=== PATIENT | female | born 1950 ===

== ENCOUNTER 2016-09-08 15:55 | Inpatient (IN) | payer MEDICARE, OTHER ==
[2016-09-08 15:55] VITALS: BMI 30.1
[2016-09-08] MEDS ORDERED: Sodium Chloride 0.9% 1,000 ML IV STA ×2 (16:08→16:14)
[2016-09-08 17:10] LABS: BASO # 0.1 K/uL (0.0-0.2); BASO % 0.4 % (0.0-2.0); EOS # 0.2 K/uL (0.0-0.7); EOS % 1.2 % (0.0-4.0); HEMATOCRIT 42.9 % (34.0-47.0); LYMPH # 4.3 K/uL (1.0-4.3); LYMPH % 26.4 % (20.0-40.0); MEAN CELL VOLUME 87.2 fl (81.0-99.0); MEAN CORPUSCULAR HEMOGLOBIN 28.7 pg (27.0-31.0); MEAN PLATELET VOLUME 7.8 fl (7.2-11.7); MONO # 1.5 K/uL (0.0-0.8); MONO % 9.4 % (0.0-10.0); NEUT # 10.1 K/uL (1.8-7.0); NEUT % 62.6 % (50.0-75.0); RED CELL DISTRIBUTION WIDTH 13.2 % (11.5-14.5); WHITE BLOOD COUNT 16.1 K/uL (4.8-10.8)
--- NOTE | 2016-09-08 17:16 | ED PDOC ---
HPI: Abdomen Time Seen by Provider: 09/08/16 16:07 Chief Complaint (Nursing): Abdominal Pain Chief Complaint (Provider): abdominal pain nausea History Per: Patient, Other (Rx from SLAVA Bassett) Onset/Duration Of Symptoms: Days (3) Current Symptoms Are (Timing): Intermittent Episodes Context: Food Location Of Pain/Discomfort: RUQ Quality Of Discomfort: Sharp, Cramping, Burning Associated Symptoms: Nausea, Loss Of Appetite. denies: Vomiting, Diarrhea Exacerbating Factors: None Alleviating Factors: None Additional Complaint(s): 66yo female c/o RUQ abdominal pain, associated with nausea ongoing now for 3 days. Pain sharp radiating to back and "ribs". Denies prior history of similar pain. Denies urinary symptoms, fever, cough or syncope. Past Medical History Reviewed: Historical Data, Nursing Documentation Vital Signs: Last Vital Signs Temp 98.0 F 09/08/16 16:02 Pulse 85 09/08/16 16:02 Resp 16 09/08/16 16:02 BP 153/74 H 09/08/16 16:02 Pulse Ox 100 09/08/16 17:16 - Medical History PMH: Arthritis, Hypercholesterolemia, Hyperlipidemia Denies: HIV, HTN - Surgical History Surgical History: Denies: CABG - Family History Family History: States: Unknown Family Hx - Social History Current smoker - smoking cessation education provided: No Alcohol: None - Home Medications Home Medications: Ambulatory Orders Medication Instructions Recorded Calcium Carbonate [Oscal] 500 mg PO DAILY #0 tab 08/02/15 Aspirin [Ecotrin] 81 mg PO DAILY 02/12/16 Cholecalciferol (Vitamin D3) 5,000 unit PO DAILY 02/12/16 [Vitamin D3] Mv,Ca,Min/Iron/FA/Guarana/Caff 1 tab PO DAILY 02/12/16 [One-A-Day Women's Tablet] Rosuvastatin Calcium [Crestor] 10 mg PO Q48H 02/12/16 - Allergies Allergies/Adverse Reactions: Allergies Allergy/AdvReac Type Severity Reaction Status Date / Time gemifloxacin mesylate Allergy RASH Verified 07/31/15 22:33 [From Factive] Review of Systems Constitutional: Negative for: Fever, Chills Cardiovascular: Negative for: Chest Pain Respiratory: Negative for: Cough, Shortness of Breath Gastrointestinal: Positive for: Nausea, Abdominal Pain. Negative for: Vomiting , Diarrhea Genitourinary Female: Negative for: Dysuria, Frequency Musculoskeletal: Positive for: Back Pain. Negative for: Neck Pain, Arm Pain, Leg Pain Skin: Negative for: Rash, Lesions, Jaundice Neurological: Negative for: Weakness, Numbness Psych: Negative for: Anxiety Physical Exam - Reviewed Nursing Documentation Reviewed: Yes Vital Signs Reviewed: Yes - Physical Exam Appears: Positive for: Well, Non-toxic, No Acute Distress Head Exam: Positive for: ATRAUMATIC, NORMAL INSPECTION, NORMOCEPHALIC Skin: Positive for: Normal Color, Warm, DRY Eye Exam: Positive for: EOMI, Normal appearance, PERRL ENT: Positive for: Normal ENT Inspection Neck: Positive for: Normal, Painless ROM Cardiovascular/Chest: Positive for: Regular Rate, Rhythm Respiratory: Positive for: CNT, Normal Breath Sounds Gastrointestinal/Abdominal: Positive for: Bowel Sounds, Soft, Tenderness (+RUQ) . Negative for: Guarding, Rebound Back: Positive for: Normal Inspection Extremity: Positive for: Normal ROM Neurologic/Psych: Positive for: Alert, Oriented - Laboratory Results Result Diagrams: 09/08/16 16:15 09/08/16 16:45 - ECG O2 Sat by Pulse Oximetry: 100 Pulse Ox Interpretation: Normal Medical Decision Making Medical Decision Making: Workup initiated for RUQ pain r/o cholecystitis vs cholelithiasis vs liver abnormality vs other. Pain medication initiated. labs reviewed Mild elev WBC and AST US prelim report RUQ +multiple hypoechoeic lesions, GB contracted. CT abd pelv thus ordered. Pt updated on findings. Disposition - Clinical Impression Clinical Impression: Abdominal pain - Patient ED Disposition Is Patient to be Admitted: Transfer of Care Counseled Patient/Family Regarding: Studies Performed - Disposition Disposition: Transfer of Care Disposition Time: 19:08 Condition: STABLE Patient Signed Over To: Fermin Hilton Handoff Comments: pending CT abd pelv diagnosis and dispo
[2016-09-08 17:21] LABS: ALB/GLOB RATIO 1.1 (1.0-2.1); ALKALINE PHOSPHATASE 110 U/L (38-126); ALT/SGPT 36 U/L (9-52); AST/SGOT 53 U/L (14-36); BILIRUBIN,TOTAL 0.3 mg/dl (0.2-1.3); BLOOD UREA NITROGEN 16 mg/dl (7-17); CALCIUM 9.9 mg/dL (8.4-10.2); CARBON DIOXIDE 25 mmol/L (22-30); CHLORIDE 102 mmol/L (98-107); GFR AFRICAN-AMERICAN > 60; GLUCOSE,RANDOM 94 mg/dL (65-105); LIPASE 78 U/L (23-300); POTASSIUM 3.9 MMOL/L (3.6-5.0); SODIUM 142 mmol/l (132-148); TOTAL PROTEIN 8.1 G/DL (6.3-8.2)
[2016-09-08] MEDS ORDERED: Iohexol 240 (50 ml) PO ONE (18:07)
[2016-09-08] MEDS ORDERED: Iohexol 240 (50 ml) ONE (18:33)
[2016-09-08 20:16] LABS: RBC URINE 2 /hpf (0-3); URINE BILIRUBIN NEGATIVE (NEGATIVE); URINE BLOOD NEGATIVE (NEGATIVE); URINE COLOR YELLOW (YELLOW); URINE GLUCOSE (UA) NEG (Normal); URINE KETONE NEGATIVE (NEGATIVE); URINE LEUKOCYTE ESTERASE NEG Leu/uL (Negative); URINE PROTEIN NEGATIVE (NEGATIVE); URINE UROBILINOGEN 0.2-1.0 mg/dL (0.2-1.0); WBC URINE < 1 /hpf (0-5)
[2016-09-08] MEDS ORDERED: Iohexol 300 100 ML IJ ONE (20:39)
[2016-09-08] MEDS ORDERED: Sodium Chloride 0.9% 50 ML IV ONE (20:39)
--- NOTE | 2016-09-08 22:19 | CT ---
EXAM: CT Abdomen and Pelvis With Intravenous Contrast CLINICAL HISTORY: 66 years old, female; Pain; Abdominal pain; Localized; Right upper quadrant (ruq); Additional info: Ruq abdominal pain abnormal us. Sent physician doc. With request TECHNIQUE: Axial computed tomography images of the abdomen and pelvis with intravenous contrast. This CT exam was performed using one or more of the following dose reduction techniques: automated exposure control, adjustment of the mA and/or kV according to patient size, and/or use of iterative reconstruction technique. Coronal and sagittal reformatted images were created and reviewed. CONTRAST: 100 mL of [id number] administered intravenously. EXAM DATE/TIME: 09/08/2016 6:07 PM COMPARISON: Prior CT abdomen and pelvis of 09/11/2015. FINDINGS: LOWER THORAX: No infiltrate seen in the lung bases. ABDOMEN: LIVER: Since the prior study, there has been development of multiple indeterminate liver lesions, which do not appear to represent cysts. The largest lesion is a large, irregularly-shaped, infiltrative appearing lesion centered in the anterior segment of the right lobe, but also extending into the medial segment of the left lobe. This lesion measures at least 9.4 x 8.0 cm in size. It has an irregular shape, with lobulated margins. It is mostly hypodense, and demonstrates peripheral enhancement. The remaining lesions are smaller in size and round in shape. They are also hypodense, with peripheral enhancement. At least 3 additional lesions are seen. No associated air. GALLBLADDER AND BILE DUCTS: No CT evidence of acute cholecystitis. No evidence of significant biliary ductal dilatation. PANCREAS: No CT evidence of acute pancreatitis. SPLEEN: No acute abnormality of the spleen identified. ADRENALS: No acute abnormality of the adrenal glands identified. KIDNEYS AND URETERS: No acute abnormality of the kidneys identified. No evidence of significant hydrouereteronephrosis. STOMACH AND BOWEL: No acute abnormality of the stomach or duodenum identified. No evidence of small bowel obstruction. No acute abnormality of the colon identified. APPENDIX: Appendix is seen, and is within normal limits in appearance. PELVIS: BLADDER: No acute abnormality of the bladder identified. REPRODUCTIVE:No acute abnormality of the reproductive organs is seen. No acute abnormality of the uterus identified. No evidence of large adnexal masses. ABDOMEN and PELVIS: INTRAPERITONEAL SPACE: No evidence of free intraperitoneal air or fluid. BONES/JOINTS: Bony structures appear demineralized. No findings to suggest diffuse bony metastatic disease. SOFT TISSUES: Bilateral fat-containing inguinal hernias. VASCULATURE: No evidence of abdominal aortic aneurysm. No evidence of periaortic hemorrhage. LYMPH NODES: Mildly enlarged portacaval lymph node is seen, measuring 3.6 x 1.5 cm, and cannot rule out a metastatic lymph node. No evidence of diffuse pathologic lymphadenopathy. IMPRESSION: - Multiple indeterminate, peripherally-enhancing liver lesions, a new finding compared to a 09/11/2015 CT. The dominant lesion is a large (9.4 cm) infiltrative lesion centered in the right lobe. In a patient of this age, neoplasm is suspected, such as liver metastases. Inflammatory lesions, such as liver abscesses are difficult to rule out given the appearance. Findings require clinical correlation. There is no additional evidence of an inflammatory process in the abdomen or pelvis. - See above for remaining findings.
[2016-09-08] MEDS ORDERED: Piperacillin/Tazobact 3.375 GM in Sodium Chloride 0.9% 100 ML IVPB STA (22:41)
--- NOTE | 2016-09-08 22:42 | ED PDOC ---
- Laboratory Results Result Diagrams: 09/08/16 16:15 09/08/16 16:45 - ECG O2 Sat by Pulse Oximetry: 100 Medical Decision Making Medical Decision Makin:08 Patient transferred over to pr by Dr. Tono Hansen III pending CT A/P diagnosis and disposition. 1030PM: U/S and CT concerning for possible abscess or neoplasm. Spoke with Dr. Bassett who recommends admission for workup. Findings d/w patient. Admitted to hospitalist service with Dr. Stanley. Disposition - Clinical Impression Clinical Impression: Abdominal pain, Liver mass - POA Present On Arrival: None - Disposition Disposition: Hospitalized as Observation Patient Disposition Time: 22:30 Condition: STABLE
[2016-09-08] MEDS ORDERED: Piperacillin/Tazobact 3.375 gm Inj IVPB ONE (22:49)
[2016-09-08] MEDS ORDERED: Sodium Chloride 0.9% 1,000 ML IV SCH (23:15)
--- NOTE | 2016-09-08 23:22 | CP.PCM.HP ---
History of Present Illness - History of Present Illness History of Present Illness: CC: abd pain HPI: This is a 66 y/o female with HLD and DM2 who presents with RUQ pain which has been going on for 'some time' but worsened over the past weekend. States she has had n but no v/d. Denies f/c. States she has had malaise and decreased appetite, but only for past few days. Denies weight loss. Denies travel to foreign countries or unusual ingestions. ROS: 14 systems reviewed, negative other than HPI MHx: HLD, DM2, ?osteoarthritis SHx: R shoulder Allergies: Gemifloxacin Medications: As per med rec (pending) Family Hx: DM runs in [place], breast cancer in sister Social Hx: Lives alone, no tobacco, no EtOH Surrogate: Daughters Meliza and Kanchan Present on Admission - Present on Admission Any Indicators Present on Admission: No Past Patient History - Infectious Disease Hx of Infectious Diseases: None - Past Medical History & Family History Past Medical History?: Yes - Past Social History Alcohol: None - CARDIAC Hx Hypercholesterolemia: Yes Hx Hypertension: No - ENDOCRINE/METABOLIC Hx Endocrine Disorders: Yes Hx Diabetes Mellitus Type 2: Yes - HEMATOLOGICAL/ONCOLOGICAL Hx Human Immunodeficiency Virus (HIV): No - MUSCULOSKELETAL/RHEUMATOLOGICAL Hx Arthritis: Yes - PSYCHIATRIC Hx Substance Use: No - SURGICAL HISTORY Hx Coronary Artery Bypass Graft: No - ANESTHESIA Hx Anesthesia: Yes Hx Anesthesia Reactions: No Hx Malignant Hyperthermia: No Meds Allergies/Adverse Reactions: Allergies Allergy/AdvReac Type Severity Reaction Status Date / Time gemifloxacin mesylate Allergy RASH Verified 07/31/15 22:33 [From Factive] Physical Exam - Constitutional Appears: No Acute Distress - Head Exam Head Exam: ATRAUMATIC, NORMOCEPHALIC - Eye Exam Eye Exam: EOMI, PERRL - ENT Exam ENT Exam: Mucous Membranes Moist - Neck Exam Neck exam: Positive for: Full Rom - Respiratory Exam Respiratory Exam: Clear to Auscultation Bilateral, NORMAL BREATHING PATTERN - Cardiovascular Exam Cardiovascular Exam: REGULAR RHYTHM, +S1, +S2 - GI/Abdominal Exam GI & Abdominal Exam: Normal Bowel Sounds, Soft, Tenderness Additional comments: TTP RUQ more to the side of the ribs - Extremities Exam Extremities exam: Positive for: full ROM, normal inspection - Back Exam Back exam: NORMAL INSPECTION - Neurological Exam Neurological exam: Alert, CN II-XII Intact, Oriented x3 - Psychiatric Exam Psychiatric exam: Normal Affect, Normal Mood - Skin Skin Exam: Dry, Warm Results - Vital Signs Recent Vital Signs: Last Vital Signs Temp 98.0 F 09/08/16 16:02 Pulse 85 09/08/16 16:02 Resp 16 09/08/16 16:02 BP 153/74 H 09/08/16 16:02 Pulse Ox 100 09/08/16 22:58 - Labs Result Diagrams: 09/08/16 16:15 09/08/16 16:45 Labs: Laboratory Results - last 24 hr 09/08/16 20:01 Urine Color Yellow Urine Clarity Clear Urine pH 6.0 Ur Specific [place] 1.009 Urine Protein Negative Urine Glucose (UA) Neg Urine Ketones Negative Urine Blood Negative Urine Nitrate Negative Urine Bilirubin Negative Urine Urobilinogen 0.2-1.0 Ur Leukocyte Esterase Neg Urine RBC (Auto) 2 Urine Microscopic WBC < 1 Assessment & Plan (1) Liver mass Assessment and Plan: 66 y/o female with HLD and DM2 presenting with liver mass of unclear etiology. 1) Liver mass -- infectious vs. malignancy; elevated WC -Cont Zosyn IV for now, will cover g- and anaerobes -NPO with IVF for now, plan for possible IR guided Bx in AM 2) DM2 -- Hold metformin given IV contrast; accucheck q6h and SSI 3) DVT PPx -- SCDs only Status: Acute (2) DVT prophylaxis Status: Acute (3) Hyperlipidemia Status: Chronic (4) DM2 (diabetes mellitus, type 2) Status: Acute
[2016-09-09] MEDS: Piperacillin/Tazobact 3.375 GM in Sodium Chloride 0.9% 100 ML IVPB SCH ×4 (04:01→21:10)
[2016-09-09] MEDS: Insulin Regular 100 units/ml SC SCH ×4 (07:27→22:02)
[2016-09-09 07:44] LABS: BASO # 0.1 K/uL (0.0-0.2); BASO % 0.5 % (0.0-2.0); EOS # 0.4 K/uL (0.0-0.7); HEMATOCRIT 39.1 % (34.0-47.0); LYMPH # 3.3 K/uL (1.0-4.3); LYMPH % 27.5 % (20.0-40.0); MEAN CELL VOLUME 86.5 fl (81.0-99.0); MEAN CORPUSCULAR HEMOGLOBIN 29.2 pg (27.0-31.0); MEAN CORPUSCULAR HGB CONC 33.8 g/dL (33.0-37.0); MEAN PLATELET VOLUME 7.9 fl (7.2-11.7); MONO # 1.1 K/uL (0.0-0.8); MONO % 9.1 % (0.0-10.0); NEUT # 7.3 K/uL (1.8-7.0); NEUT % 59.9 % (50.0-75.0); NRBC % 0.1 % (0.0-0.0); RED CELL DISTRIBUTION WIDTH 13.2 % (11.5-14.5); WHITE BLOOD COUNT 12.1 K/uL (4.8-10.8)
[2016-09-09 07:51] LABS: ALKALINE PHOSPHATASE 96 U/L (38-126); ALT/SGPT 26 U/L (9-52); AST/SGOT 40 U/L (14-36); BILIRUBIN,TOTAL 0.5 mg/dl (0.2-1.3); BLOOD UREA NITROGEN 17 mg/dl (7-17); CALCIUM 9.1 mg/dL (8.4-10.2); CARBON DIOXIDE 24 mmol/L (22-30); CHLORIDE 106 mmol/L (98-107); GFR AFRICAN-AMERICAN > 60; GLUCOSE,RANDOM 105 mg/dL (65-105); POTASSIUM 4.1 MMOL/L (3.6-5.0); SODIUM 143 mmol/l (132-148); TOTAL PROTEIN 6.7 G/DL (6.3-8.2)
[2016-09-09 07:54] LABS: PARTIAL THROMBOPLASTIN TIME 25.2 SECONDS (23.3-32.5)
[2016-09-09] MEDS ORDERED: Lidocaine 1% Inj (20ml) ONE (10:51)
[2016-09-09] MEDS ORDERED: Absorbable Gelatin Sponge Size 12-7 ONE (10:52)
[2016-09-09] MEDS ORDERED: Midazolam 2 MG/2 ML VIAL ONE (10:56)
--- NOTE | 2016-09-09 11:16 | PCM.SURG1 ---
Surgeon's Initial Post Op Note - Surgeon's Notes Surgeon: Placido Spann MD Dipper Machine Operator: NONE Type of Anesthesia: IV Sedation Pre-Operative Diagnosis: Liver mass Operative Findings: US showed a heterogenous mass right liver. Post-Operative Diagnosis: Liver mass Operation Performed: US guided core biopsy of right liver mass. Specimen/Specimens Removed: 18 g core x 3 Estimated Blood Loss: EBL {In ML}: 2 Blood Products Given: N/A Drains Used: No Drains Post-Op Condition: Fair Date of Surgery/Procedure: 09/09/16 Time of Surgery/Procedure: 11:10
--- NOTE | 2016-09-09 11:58 | US ---
HISTORY: RUQ pain attention liver, GB, aorta, pancreas COMPARISON: 08/10/2015. Hepatic ultrasound. 09/11/2015 CT abdomen and pelvis September 08, 2016. CT abdomen and pelvis. Summary of findings on the comparison examination: Multiple indeterminate peripherally enhancing liver lesions a new finding compared to prior CT scan 09/11/2015. Dominant lesion 9.4 cm right hepatic lobe TECHNIQUE: Sonographic evaluation of the abdomen. FINDINGS: LIVER: Measures 17 cm. Hepatopedal blood flow. Fatty infiltration manifest ultrasonographically as increased echogenicity of the liver parenchyma. Confirmation of hepatic masses better delineated on recent CT scan. This includes the right hepatic mass 10.5 x 9.2 cm. Smaller mass in the left hepatic lobe measures 1.1 cm. An additional mass in the right hepatic lobe "Area of pain" identified 2.1 x 2.5 cm. GALLBLADDER: Unremarkable. No gallstones. COMMON BILE DUCT: Measures 2.7 mm. No stones. No dilatation. PANCREAS: Unremarkable as visualized. No mass. No ductal dilatation. RIGHT KIDNEY: Measures 5.3 x 11.2cm. Normal echogenicity. No calculus, mass, or hydronephrosis. AORTA: No aneurysmal dilatation. IVC: Unremarkable. OTHER FINDINGS: None. IMPRESSION: Enlarged liver, multiple hepatic masses better delineated on recent CT scan. Otherwise no acute/ significant findings.
[2016-09-09] MEDS: Lactated Ringer's 1,000 ML IV SCH ×2 (13:00→22:56)
--- NOTE | 2016-09-09 14:21 | CP.PCM.PN ---
Subjective - Date & Time of Evaluation Date of Evaluation: 09/09/16 Time of Evaluation: 14:00 - Subjective Subjective: no fever still with abdominal pain pt seen post Liver biopsy no N/V no diaarhea nor constipation no CP no SOB Had Colonoscopy 3 yrs ago- normal yearly Mammo negative Objective - Vital Signs/Intake and Output Vital Signs (last 24 hours): Temp Pulse Resp BP Pulse Ox 98.5 F 66 18 124/71 95 09/09/16 13:00 09/09/16 13:00 09/09/16 13:00 09/09/16 13:00 09/09/16 13:00 Intake and Output: 09/09/16 09/09/16 06:59 18:59 Intake Total 200 Balance 200 - Medications Medications: Current Medications Acetaminophen (Tylenol 325mg Tab) 650 mg PO Q6 PRN PRN Reason: Pain, Mild (1-3) Acetaminophen (Tylenol 325mg Tab) 650 mg PO Q6 PRN PRN Reason: Fever >100.4 F Atorvastatin Calcium (Lipitor) 20 mg PO DAILY [facility] Last Admin: 09/09/16 09:27 Dose: Not Given Piperacillin Sod/Tazobactam (Sod 3.375 gm/ Sodium Chloride) 100 mls @ 100 mls/ hr IVPB Q6 [facility] Last Admin: 09/09/16 09:28 Dose: 100 mls/hr Lactated Ringer's (Lactated Ringer's) 1,000 mls @ 100 mls/hr IV .Q10H [facility] Last Admin: 09/09/16 13:00 Dose: 200 mls Metronidazole (Flagyl 500mg/100ml Ns) 100 mls @ 100 mls/hr IVPB Q8 [facility] Insulin Human Regular (Humulin R) 0 units SC ACHS [facility] PRN Reason: Protocol Last Admin: 09/09/16 13:27 Dose: Not Given Ondansetron HCl (Zofran Inj) 4 mg IVP Q6 PRN PRN Reason: Nausea/Vomiting Oxycodone/Acetaminophen (Percocet 5/325 Mg Tab) 1 tab PO Q4 PRN PRN Reason: Pain, moderate (4-7) Stop: 09/11/16 23:16 - Labs Labs: PT 10.7 SECONDS (9.6-11.2) 09/09/16 05:40 INR 1.03 (0.92-1.08) 09/09/16 05:40 APTT 25.2 SECONDS (23.3-32.5) 09/09/16 05:40 - Constitutional Appears: No Acute Distress - Head Exam Head Exam: NORMAL INSPECTION, NORMOCEPHALIC - Eye Exam Eye Exam: EOMI, Normal appearance, PERRL Pupil Exam: NORMAL ACCOMODATION - ENT Exam ENT Exam: Mucous Membranes Dry, Normal External Ear Exam - Neck Exam Neck Exam: Full ROM. absent: Meningismus - Respiratory Exam Respiratory Exam: NORMAL BREATHING PATTERN. absent: Respiratory Distress - Cardiovascular Exam Cardiovascular Exam: REGULAR RHYTHM, +S1, +S2 - GI/Abdominal Exam GI & Abdominal Exam: Soft, Tenderness (epigastric and RUQ), Normal Bowel Sounds - Extremities Exam Extremities Exam: Full ROM. absent: Calf Tenderness, Normal Capillary Refill, Pedal Edema - Back Exam Back Exam: Full ROM. absent: CVA tenderness (L), CVA tenderness (R), paraspinal tenderness, vertebral tenderness - Neurological Exam Neurological Exam: Alert, Awake, CN II-XII Intact, Oriented x3 Neuro motor strength exam: Left Upper Extremity: 5, Right Upper Extremity: 5, Left Lower Extremity: 5, Right Lower Extremity: 5 - Psychiatric Exam Psychiatric exam: Normal Affect, Normal Mood - Skin Skin Exam: Dry, Normal Color, Warm Assessment and Plan (1) Abdominal pain Status: Acute (2) Liver mass Status: Acute (3) DM2 (diabetes mellitus, type 2) Status: Chronic (4) Hyperlipidemia Status: Chronic (5) DVT prophylaxis Status: Acute - Assessment and Plan (Free Text) Assessment: 66 y/o lady with hx of DM, Hyperlipidemia came bec of abd pain. CT of abdomen : multiple liver lesions, largest 9.4 cm. (1) Abdominal pain Status: Acute Pain mgt with IV Morphine Pt is NPO , will slowly upgrade diet - start Clear liquid diet empirically started on IV Zosyn (2) Liver masses, ? metastatic Status: Acute CT of abd : multiple liver lesions IR consulted for US guided liver biopsy = await pathology Oncology consult : Dr Madrid AFP: normal need further work up for malignancy Colonoscopy - 2-3 yrs ago was normal accdg to pt Pt had Breast biopsy done 2 yrs ago : normal (3) DM2 (diabetes mellitus, type 2) controlled Status: Chronic accucheck with coverage (4) Hyperlipidemia Status: Chronic cont Lipitor (5) DVT prophylaxis Status: Acute SCD for now- pt just had biopsy
[2016-09-09 16:13] VITALS: RESP 20
[2016-09-09] MEDS: metroNIDAZOLE 500mg/100ml NS 100 ML IVPB SCH (17:34)
[2016-09-09] MEDS: Oxycodone/Acetaminophen 5/325 mg Tab PO PRN ×2 (18:43→23:45)
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
[2016-09-10] MEDS: metroNIDAZOLE 500mg/100ml NS 100 ML IVPB SCH ×2 (00:08→09:12)
[2016-09-10] MEDS: Piperacillin/Tazobact 3.375 GM in Sodium Chloride 0.9% 100 ML IVPB SCH ×2 (04:34→10:41)
[2016-09-10] MEDS: Insulin Regular 100 units/ml SC SCH ×2 (06:50→12:36)
[2016-09-10 08:01] VITALS: BP 147/74; PULSE 67; TEMP 98.6; O2SAT 94
[2016-09-10 08:09] LABS: CARCINOEMBRYONIC ANTIGEN 1.2 ng/mL (0-3.0)
[2016-09-10] MEDS: Lactated Ringer's 1,000 ML IV SCH (09:12)
[2016-09-10 09:29] LABS: HEMATOCRIT 40.7 % (34.0-47.0); MEAN CELL VOLUME 86.9 fl (81.0-99.0); MEAN CORPUSCULAR HEMOGLOBIN 28.8 pg (27.0-31.0); MEAN CORPUSCULAR HGB CONC 33.2 g/dL (33.0-37.0); RED CELL DISTRIBUTION WIDTH 13.1 % (11.5-14.5); WHITE BLOOD COUNT 15.5 K/uL (4.8-10.8)
[2016-09-10 09:38] LABS: ALKALINE PHOSPHATASE 96 U/L (38-126); ALT/SGPT 27 U/L (9-52); AST/SGOT 49 U/L (14-36); BILIRUBIN,TOTAL 0.6 mg/dl (0.2-1.3); BLOOD UREA NITROGEN 12 mg/dl (7-17); CALCIUM 9.2 mg/dL (8.4-10.2); CARBON DIOXIDE 22 mmol/L (22-30); CHLORIDE 105 mmol/L (98-107); GFR AFRICAN-AMERICAN > 60; GLUCOSE,RANDOM 110 mg/dL (65-105); SODIUM 144 mmol/l (132-148); TOTAL PROTEIN 7.2 G/DL (6.3-8.2)
[2016-09-10] MEDS: Oxycodone/Acetaminophen 5/325 mg Tab PO PRN (10:00)
--- NOTE | 2016-09-10 14:21 | CP.PCM.DIS ---
Provider - Provider Date of Admission: 09/09/16 12:17 Attending physician: Navya Stanley MD Primary care physician: Dr Bassett Consults: IR for liver biopsy Dr Madrid - Oncology Time Spent in preparation of Discharge (in minutes): 35 Diagnosis - Discharge Diagnosis (1) Abdominal pain Status: Acute (2) Liver mass Status: Acute (3) DM2 (diabetes mellitus, type 2) Status: Chronic (4) Hyperlipidemia Status: Chronic (5) DVT prophylaxis Status: Acute Hospital Course - Lab Results Lab Results: Most Recent Lab Values WBC 15.5 K/uL (4.8-10.8) H 09/10/16 09:27 RBC 4.69 Mil/uL (3.80-5.20) 09/10/16 09:27 Hgb 13.5 g/dL (12.0-16.0) 09/10/16 09:27 Hct 40.7 % (34.0-47.0) 09/10/16 09:27 MCV 86.9 fl (81.0-99.0) 09/10/16 09:27 MCH 28.8 pg (27.0-31.0) 09/10/16 09:27 MCHC 33.2 g/dL (33.0-37.0) 09/10/16 09:27 RDW 13.1 % (11.5-14.5) 09/10/16 09:27 Plt Count 313 K/uL (130-400) 09/10/16 09:27 MPV 7.9 fl (7.2-11.7) 09/09/16 05:40 Neut % (Auto) 59.9 % (50.0-75.0) 09/09/16 05:40 Lymph % (Auto) 27.5 % (20.0-40.0) 09/09/16 05:40 Mcdonald % (Auto) 9.1 % (0.0-10.0) 09/09/16 05:40 Eos % (Auto) 3.0 % (0.0-4.0) 09/09/16 05:40 Baso % (Auto) 0.5 % (0.0-2.0) 09/09/16 05:40 Neut # 7.3 K/uL (1.8-7.0) H 09/09/16 05:40 Lymph # 3.3 K/uL (1.0-4.3) 09/09/16 05:40 Mcdonald # 1.1 K/uL (0.0-0.8) H 09/09/16 05:40 Eos # 0.4 K/uL (0.0-0.7) 09/09/16 05:40 Baso # 0.1 K/uL (0.0-0.2) 09/09/16 05:40 PT 10.7 SECONDS (9.6-11.2) 09/09/16 05:40 INR 1.03 (0.92-1.08) 09/09/16 05:40 APTT 25.2 SECONDS (23.3-32.5) 09/09/16 05:40 Sodium 144 mmol/l (132-148) 09/10/16 09:27 Potassium 4.0 MMOL/L (3.6-5.0) 09/10/16 09:27 Chloride 105 mmol/L (98-107) 09/10/16 09:27 Carbon Dioxide 22 mmol/L (22-30) 09/10/16 09:27 Anion Gap 21 (10-20) H 09/10/16 09:27 BUN 12 mg/dl (7-17) 09/10/16 09:27 Creatinine 0.6 mg/dL (0.7-1.2) L 09/10/16 09:27 Est GFR ( Amer) > 60 09/10/16 09:27 Est GFR (Non-Af Amer) > 60 09/10/16 09:27 POC Glucose (mg/dL) 248 mg/dL (65-110) H 09/10/16 10:47 Random Glucose 110 mg/dL (65-105) H 09/10/16 09:27 Calcium 9.2 mg/dL (8.4-10.2) 09/10/16 09:27 Total Bilirubin 0.6 mg/dl (0.2-1.3) 09/10/16 09:27 AST 49 U/L (14-36) H D 09/10/16 09:27 ALT 27 U/L (9-52) 09/10/16 09:27 Alkaline Phosphatase 96 U/L (38-126) 09/10/16 09:27 Total Protein 7.2 G/DL (6.3-8.2) 09/10/16 09:27 Albumin 3.6 g/dL (3.5-5.0) 09/10/16 09:27 Globulin 3.6 gm/dL (2.2-3.9) 09/10/16 09:27 Albumin/Globulin Ratio 1.0 (1.0-2.1) 09/10/16 09:27 Lipase 78 U/L (23-300) 09/08/16 16:45 Alpha Fetoprotein 7.4 IU/mL (0.0-7.22) H 09/10/16 05:35 Carcinoembryonic Ag 1.2 ng/mL (0-3.0) 09/10/16 05:35 Urine Color Yellow (YELLOW) 09/08/16 20:01 Urine Clarity Clear (Clear) 09/08/16 20:01 Urine pH 6.0 (5.0-8.0) 09/08/16 20:01 Ur Specific [place] 1.009 (1.003-1.030) 09/08/16 20:01 Urine Protein Negative mg/dL (NEGATIVE) 09/08/16 20:01 Urine Glucose (UA) Neg mg/dL (Normal) 09/08/16 20:01 Urine Ketones Negative mg/dL (NEGATIVE) 09/08/16 20:01 Urine Blood Negative (NEGATIVE) 09/08/16 20:01 Urine Nitrate Negative (NEGATIVE) 09/08/16 20:01 Urine Bilirubin Negative (NEGATIVE) 09/08/16 20:01 Urine Urobilinogen 0.2-1.0 mg/dL (0.2-1.0) 09/08/16 20:01 Ur Leukocyte Esterase Neg [place]/uL (Negative) 09/08/16 20:01 Urine RBC (Auto) 2 /hpf (0-3) 09/08/16 20:01 Urine Microscopic WBC < 1 /hpf (0-5) 09/08/16 20:01 - Hospital Course Hospital Course: 66 y/o lady with hx of DM, Hyperlipidemia came bec of abd pain. CT of abdomen : multiple liver lesions, largest 9.4 cm. Liver Biopsy done by IR. Pt will ff up pathology result with dr Madrid. (1) Abdominal pain Status: Acute Pt came with abd pain, CT of abd : multiple liver lesions Pain mgt with IV Morphine Initially NPO , slowly upgraded diet - tolerated diet today, no more N/V, will d/c home empirically started on IV Zosyn while in the hosp (2) Liver masses, ? metastatic Status: Acute CT of abd : multiple liver lesions IR consulted for US guided liver biopsy = await pathology- will ff up with Dr Madrid for result Oncology consult : Dr Madrid AFP: normal need further work up for malignancy Colonoscopy - 2-3 yrs ago was normal accdg to pt Pt had Breast biopsy done 2 yrs ago : normal (3) DM2 (diabetes mellitus, type 2) controlled Status: Chronic accucheck with coverage DM diet (4) Hyperlipidemia Status: Chronic cont Lipitor (5) DVT prophylaxis Status: Acute SCD for now- pt just had biopsy, no anticoag Discharge Exam - Head Exam Head Exam: ATRAUMATIC, NORMAL INSPECTION, NORMOCEPHALIC - Eye Exam Eye Exam: EOMI, Normal appearance, PERRL Pupil Exam: NORMAL ACCOMODATION - ENT Exam ENT Exam: Mucous Membranes Moist, Normal External Ear Exam - Neck Exam Neck exam: Full Rom - Respiratory Exam Respiratory Exam: NORMAL BREATHING PATTERN. absent: Respiratory Distress - Cardiovascular Exam Cardiovascular Exam: REGULAR RHYTHM, +S1, +S2 - GI/Abdominal Exam GI & Abdominal Exam: Normal Bowel Sounds, Soft, Tenderness (mild RUQ tenderness) - Extremities Exam Extremities exam: full ROM, normal capillary refill, pedal pulses present - Back Exam Back exam: FULL ROM, NORMAL INSPECTION. absent: CVA tenderness (L), CVA tenderness (R), paraspinal tenderness - Neurological Exam Neurological exam: Alert, CN II-XII Intact, Normal Gait, Oriented x3, Reflexes Normal - Psychiatric Exam Psychiatric exam: Normal Affect, Normal Mood - Skin Skin Exam: Dry, Intact, Normal Color, Warm Discharge Plan - Discharge Medications Prescriptions: Tramadol HCl [Ultram] 25 mg PO Q6 PRN #30 tablet PRN Reason: Pain, Moderate (4-7) - Follow Up Plan Condition: GOOD Disposition: HOME/ ROUTINE Instructions: Diabetes Mellitus Type 2 in Adults (DC), Acute Abdominal Pain (DC ) Additional Instructions: appt with DR Bassett in [address] Madrid next wk for ff up of Liver Biopsy result and further work up of Liver mass
== END 2016-09-10 16:22 | disposition home or self-care (01) | DRG 443 ==
LOC: H.ER 15:55 → H.EROBSV 19:09 → H.ERHOLD 22:46 → H.MEDSURG1 09-09 01:03 → OBSVTOIN 09-09 12:17
PROVIDERS: ADMIT Internal Medicine; ATTEND Internal Medicine
PROC: 0FB13ZX Excision of Right Lobe Liver, Percutaneous Approach, Diagnostic (ICD-10-PCS; principal; 2016-09-09 12:00)
DX: K76.89 Other specified diseases of liver (principal); E11.9 Type 2 diabetes mellitus without complications; E78.5 Hyperlipidemia, unspecified; E78.00 Pure hypercholesterolemia, unspecified; M19.90 Unspecified osteoarthritis, unspecified site; Z79.82 Long term (current) use of aspirin